=== PATIENT | female | born 1945 | race Caucasian/White ===

== ENCOUNTER 2016-06-12 10:08 | Outpatient (CLI) | payer MEDICARE, OTHER ==
[2016-06-12 12:34] LABS: #Eosinphils 0.1 thou/uL (0.0-0.7); #Lymphocytes 1.4 thou/uL (1.20-3.40); #Monocytes 0.4 thou/uL (0.11-0.59); #Neutrophils 2.9 thou/uL (1.40-6.50); %Basophils 0.8 % (0.0-1.0); %Lymphocytes 28.5 % (21.0-51.0); %Monocytes 7.7 % (0.0-10.0); Hemoglobin 13.4 g/dL (12.0-16.0); Mean Corpuscular HGB CONC 33.2 g/dL (32.0-36.0); Mean Corpuscular Hemoglobin 31.4 pg (27.0-31.0); Mean Corpuscular Volume 94.6 fl (81.0-99.0); Mean Platelet Volume 6.5 fL (7.4-10.4); Platelet Count 221 thou/uL (130-400); RBC Distribution Width 11.8 % (11.5-14.5); Red Blood Cell (RBC) Count 4.27 mill/uL (4.20-5.40); White Blood Cell (WBC) Count 4.9 thou/uL (4.8-10.8)
[2016-06-12 13:10] LABS: ALT (SGPT) 13 U/L (0-55); AST (SGOT) 14 U/L (5-34); Albumin 4.1 g/dL (3.4-4.8); Alkaline Phosphatase 66 U/L (40-150); Anion Gap 14 mmol/L (10-20); BUN (Urea Nitrogen) 26 mg/dL (9.8-20.1); Bilirubin, Total 0.3 mg/dL (0.2-1.2); Calc. Creatinine Clearance 0 mL/min (70-130); Calcium 9.6 mg/dL (7.8-10.44); Carbon Dioxide 23 mmol/L (23-31); Cardiac Risk 2.5 (Less than 4.5); Chloride 103 mmol/L (98-107); Cholesterol 203 mg/dL (< 200 Desired); Estimated GFR-MDRD 72; Globulin 2.9 g/dL (2.4-3.5); Glucose 87 mg/dL (83-110); HDL Cholesterol 81 mg/dL (>60 Neg Risk); LDL Cholesterol, Calculated 96 mg/dL; Potassium 4.4 mmol/L (3.5-5.1); Sodium 136 mmol/L (136-145); Triglycerides 132 mg/dL (Less than 150)
[2016-06-12 14:10] LABS: Bilirubin Negative (Negative); Blood, Urine Negative (Negative); Clarity Clear (Clear); Glucose, Urine (Dipstick) Negative (Negative); Leukocyte Negative (Negative); Nitrite Negative (Negative); Protein, Urine (Dipstick) Negative (Neg-Trace); Specific Gravity, Urine 1.025 (1.005-1.030); Urobilinogen 0.2 mg/dL (0.2-1.0)
== END 2016-06-12 10:09 | disposition home or self-care (01) ==
LOC: NAVSJIPCSP 10:08
PROVIDERS: ATTEND Internal Medicine
DX: I26.99 Other pulmonary embolism without acute cor pulmonale (principal); N30.00 Acute cystitis without hematuria; Z79.899 Other long term (current) drug therapy
CPT/HCPCS: 36415; 80053; 80061; 81003; 84443; 85025; 87086

== ENCOUNTER 2016-09-18 14:55 | Outpatient (CLI) | payer MEDICARE, OTHER ==
--- NOTE | 2016-09-18 15:30 | RAD ---
PA AND LATERAL CHEST: History: Bronchitis. FINDINGS: The heart size is normal. The lungs are expanded with mild bibasilar infiltrates. No pneumothorax or pleural effusions are seen. There are degenerative changes of the spine. IMPRESSION: Findings suggestive of pneumonia. POS: [facility]
== END 2016-09-18 14:56 | disposition home or self-care (01) ==
LOC: NAV RAD 14:55
PROVIDERS: ATTEND Internal Medicine
DX: J40 Bronchitis, not specified as acute or chronic (principal)
CPT/HCPCS: 71020

== ENCOUNTER 2016-09-20 09:50 | Outpatient (CLI) | payer MEDICARE, OTHER ==
[2016-09-20 10:32] LABS: Bilirubin Negative (Negative); Blood, Urine Negative (Negative); Clarity Slightly Cloudy (Clear); Glucose, Urine (Dipstick) Negative (Negative); Leukocyte Negative (Negative); Nitrite Negative (Negative); Protein, Urine (Dipstick) Trace mg/dL (Neg-Trace); Urobilinogen 0.2 mg/dL (0.2-1.0); pH, Urine 5.5 (5.0-9.0)
[2016-09-20 10:45] LABS: Bacteria/HPF 1+ HPF (None Seen); RBC/HPF None Seen HPF (0-3); WBC/HPF 0-3 HPF (0-3)
[2016-09-20 10:46] LABS: Other Microscopic Description NO
== END 2016-09-20 09:51 | disposition home or self-care (01) ==
LOC: NAVSJIPCSP 09:50 → NAV LAB 09:51
DX: R35.0 Frequency of micturition (principal)
CPT/HCPCS: 81001; 87086

== ENCOUNTER 2018-05-26 12:11 | Outpatient (CLI) | payer MEDICARE, OTHER ==
[~2018-05-26 12:11] MED LIST: Iopamidol 370 76% 100 ML VIAL ONE
--- NOTE | 2018-05-26 13:07 | CT ---
PRE AN DPOSTCONTRAST ENHANCED CT IMAGES OF BRAIN: HISTORY: Diplopia. COMPARISON: Comparison is made to a previous exam from 03/31/2015. FINDINGS: Pre- and postcontrast-enhanced CT images of the brain demonstrate mild cortical atrophy and deep whit e matter ischemic changes. No evidence of acute intracranial masses, hemorrhages, strokes, or contusions seen. No evidence of intracranial hemorrhage seen. IMPRESSION: Unremarkable pre- and postcontrast-enhanced CT images of the brain. POS: [facility]
== END 2018-05-26 12:12 | disposition home or self-care (01) ==
LOC: NAV CT 12:11
PROVIDERS: ATTEND Internal Medicine
DX: H53.2 Diplopia (principal)
CPT/HCPCS: 70470; Q9967